=== PATIENT | female | born 1965 | race Caucasian/White ===

== ENCOUNTER 2019-01-31 01:25 | Emergency (ER) | payer OTHER, MEDICAID ==
[~2019-01-31] VITALS: Ht 152.4 cm; Wt 77.2 kg
[2019-01-31 01:33] VITALS: Ht 152.4 cm; Wt 77.2 kg
[2019-01-31 02:20] LABS: PLATELET COUNT 243 x10^3mcL (130-400); RED CELL DISTRIBUTION WIDTH 13.4 % (11.5-14.5)
[2019-01-31 02:23] LABS: BASOPHIL % 0 % (0-2)
[2019-01-31 02:33] LABS: CALCIUM 8.4 mg/dL (8.5-10.1); CARBON DIOXIDE 22.5 mmol/L (21-32); CHLORIDE SERUM 105 mmol/L (98-107); CREATININE SERUM 0.7 mg/dL (0.6-1.0); GFR1 > 60 mL/min; GLUCOSE SERUM 161 mg/dL (74-106); POTASSIUM SERUM 3.3 mmol/L (3.5-5.1); SODIUM SERUM 141 mmol/L (136-145)
[2019-01-31 02:38] LABS: ALBUMIN 3.7 g/dL (3.4-5.0); ALKALINE PHOSPHATASE 220 U/L (46-116); ALT/SGPT 26 U/L (14-59); AST/SGOT 8 U/L (15-37); BILIRUBIN TOTAL 0.35 mg/dL (0.20-1.00)
[2019-01-31 04:55] VITALS: BP 138/83
== END 2019-01-31 04:55 | disposition home or self-care (01) ==
LOC: ED 01:25
PROVIDERS: Emergency Medicine
DX: K52.9 Noninfective gastroenteritis and colitis, unspecified (principal)
CPT/HCPCS: 36415; Q0162